=== PATIENT | female | born 1995 | race Caucasian/White ===

== ENCOUNTER 2023-11-07 20:25 | Emergency (ER) | payer OTHER ==
[2023-11-07] MEDS ORDERED: IBUPROFEN 200 MG TAB PO ONE (21:40)
[2023-11-07] MEDS ORDERED: CYCLOBENZAPRINE 10 MG TAB ONE (21:40)
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
[2023-11-08 01:13] VITALS: BP 107/68; TEMP 98.4; O2SAT 98
== END 2023-11-08 00:02 | disposition home or self-care (01) ==
LOC: ER 20:25
DX: M54.2 Cervicalgia (principal); R51.9 Headache, unspecified; R42 Dizziness and giddiness; V49.40XA Driver injured in collision with unspecified motor vehicles in traffic accident, initial encounter
CPT/HCPCS: 70450; 72125; 99283